=== PATIENT | male | born 1995 | race Caucasian/White ===

== ENCOUNTER 2018-03-18 13:51 | Emergency (ER) | payer OTHER ==
[2018-03-18] MEDS ORDERED: Ipratropium 0.5MG/2.5ML NEB* 0.5 MG/2.5 ML NEB.SOLN INH ONE (14:10)
[2018-03-18] MEDS ORDERED: Albuterol 2.5 MG/3 ML NEB.SOL* (0.083%) INH ONE (14:10)
[2018-03-18 14:11] VITALS: BP 123/77
--- NOTE | 2018-03-18 14:22 | UC ---
Respiratory Complaint HPI - HPI Summary HPI Summary: sick for 2 days with "tickle in this throat" awoke today feeling much worse--- sob at rest--low grade fever 98.8 yesterday and chills and subjective fever - History of Current Complaint Chief Complaint: UCRespiratory Stated Complaint: SHORTNESS OF BREATH, SINUS PRESSURE Time Seen by Provider: 03/18/18 14:17 Hx Obtained From: Patient Onset/Duration: Sudden Onset, Lasting Days - 2, Worse Since - this morning Timing: Constant Severity Initially: Moderate Severity Currently: Moderate Character: Cough: Nonproductive Aggravating Factors: Exertion Alleviating Factors: Nothing Associated Signs And Symptoms: Positive: Dyspnea, Fever, Chills, Wheezing - Allergies/Home Medications Allergies/Adverse Reactions: Allergies Allergy/AdvReac Type Severity Reaction Status Date / Time No Known Allergies Allergy Verified 03/18/18 14:05 Home Medications: Home Medications D-Methorphan/PE/Acetaminophen [Day Time Cold-Flu Liquid] 10 ml PO DAILY [History Confirmed 03/18/18] PMH/Surg Hx/FS Hx/Imm Hx Previously Healthy: Yes - Surgical History Surgical History: Yes Surgery Procedure, Year, and Place: RIGHT ACL. TONSILLECTOMY AND ADENOIDECTOMY - Family History Known Family History: Positive: None - Social History Occupation: Employed Part-time, Student Lives: Dormitory/Roommates Alcohol Use: Occasionally Substance Use Type: None Smoking Status (MU): Never Smoked Tobacco Review of Systems Constitutional: Chills, Fatigue Skin: Negative Eyes: Negative ENT: Sore Throat Respiratory: Shortness Of Breath, Cough Cardiovascular: Negative Gastrointestinal: Negative Genitourinary: Negative Motor: Negative Neurovascular: Negative Musculoskeletal: Negative Neurological: Negative Psychological: Negative Is Patient Immunocompromised?: No All Other Systems Reviewed And Are Negative: Yes Physical Exam Triage Information Reviewed: Yes Appearance: Well-Nourished, Ill-Appearing, Pain Distress Vital Signs: Initial Vital Signs Temp 97.9 F 03/18/18 13:55 Pulse 110 03/18/18 13:55 Resp 28 03/18/18 13:55 BP 123/77 03/18/18 13:55 Pulse Ox 90 03/18/18 13:55 Vital Signs Reviewed: Yes Eye Exam: Normal Eyes: Positive: Conjunctiva Clear ENT Exam: Normal ENT: Positive: Normal ENT inspection, Hearing grossly normal. Negative: Hoarse voice Dental Exam: Normal Neck exam: Normal Neck: Positive: 1 Respiratory Exam: Normal Respiratory: Positive: No accessory muscle use, Wheezing Cardiovascular Exam: Normal Cardiovascular: Positive: Pulses Normal, Brisk Capillary Refill, Tachycardia Abdominal Exam: Normal Musculoskeletal Exam: Normal Neurological Exam: Normal Psychological Exam: Normal Skin Exam: Normal UC Diagnostic Evaluation - Laboratory O2 Sat by Pulse Oximetry: 90 - Radiology Xray Interpretation: No Acute Changes Radiology Interpretation Completed By: ED Physician, Radiologist - Patient Name : ROGER SHARMA Medical Record#: [id number] Re-Evaluation - Re-Evaluation First Eval Change: Improved - increase aeration after neb sats up to 93-94% Second Eval Change: Improved - sat 95-96% Hr 86-90. scant wheeze Respiratory Course/Dx - Course Course Of Treatment: albuterol with spacer, prednisone, to ed for worening or return of symptoms, recheck at [facility] in 1-2 days - Differential Dx/Diagnosis Provider Diagnoses: bronchitis with acute bronchospasm Discharge - Sign-Out/Discharge Documenting (check all that apply): Patient Departure All imaging exams completed and their final reports reviewed: Yes - Discharge Plan Condition: Stable Disposition: HOME Prescriptions: Albuterol HFA INHALER* [Ventolin HFA Inhaler*] 2 puff INH Q4H PRN #1 mdi PRN Reason: cough/wheeze/chest tightness predniSONE [Prednisone 20 MG TAB] 20 mg PO DAILY #12 tablet Patient Education Materials: Acute Bronchitis (ED), Bronchospasm (ED), How to Use a Metered-Dose Inhaler and a Spacer (ED) Forms: *Work Release Referrals: No Primary Care Phys,NOPCP [Primary Care Provider] - [facility] [Outside] - 2 Days - Billing Disposition and Condition Condition: STABLE Disposition: Home
[2018-03-18] MEDS ORDERED: predniSONE TAB* 20 MG PO ONE (14:37)
--- NOTE | 2018-03-18 14:58 | RAD ---
INDICATION: Cough x2 days COMPARISON: None TECHNIQUE: PA and lateral views of the chest were obtained. FINDINGS: The heart and mediastinum are normal in size and contour. The lungs are grossly clear. There is no evidence of large pleural effusion. Visualized bones are normal for the patient's age. There is no radiographic evidence of free air beneath the diaphragm IMPRESSION: No radiographic evidence of acute cardiopulmonary disease.
== END 2018-03-18 15:39 | disposition home or self-care (01) ==
LOC: UCCORT 13:51
DX: J20.9 Acute bronchitis, unspecified (principal)
CPT/HCPCS: 71046; 99202; G0463; J7512